=== PATIENT | female | born 1945 | race Caucasian/White ===

== ENCOUNTER 2020-05-06 12:54 | Outpatient (CLI) | payer MEDICARE ==
--- NOTE | 2020-05-06 14:04 | BD ---
EXAM: DEXA bone density examination HISTORY: 74-year-old postmenopausal female for screening COMPARISON: None FINDINGS: L1--bone mineral density 0.878 g/sq cm; T score -1.0 L2--bone mineral density 0.816 g/sq cm; T score -1.2 L3--bone mineral density 0.923 g/sq cm; T score -1.5 L4--bone mineral density 0.845 g/sq cm; T score -2.0 Total L1-L4--bone mineral density 0.884 g/sq cm; T score -1.5 Left femoral neck--bone mineral density0.620; T score -2.1 Total proximal left femur--bone mineral density 0.809; T score -1.1 IMPRESSION: Osteopenia. This patient has a 10 year WHO fracture risk of a major osteoporotic fracture of 13% and of a hip fracture of 3.5%.
--- NOTE | 2020-05-10 16:03 | MMO ---
Bilateral MAMMO Bilat Screen [facility]. CLINICAL HISTORY: Patient is 74 years old and is seen for screening. The patient has no family history of breast cancer. The patient has no personal history of cancer. The patient has a history of left Excisional Biopsy - benign - YEARS AGO. VIEWS: The views performed were: bilateral craniocaudal with tomosynthesis and bilateral mediolateral oblique with tomosynthesis. FILMS COMPARED: The present examination has been compared to prior imaging studies performed at 05/04/2019. This study has been interpreted with the assistance of computer-aided detection. MAMMOGRAM FINDINGS: The breasts are heterogeneously dense, which could obscure a lesion on mammography. Finding 1: There are benign appearing calcifications seen in both breasts. Finding 2: There are multiple round masses of varying size with circumscribed margins seen in the right breast. There are no suspicious masses, suspicious calcifications, or new areas of architectural distortion. IMPRESSION: THERE IS NO MAMMOGRAPHIC EVIDENCE OF MALIGNANCY. A ROUTINE FOLLOW-UP MAMMOGRAM IN 1 YEAR IS RECOMMENDED. THE RESULTS OF THIS EXAM WERE SENT TO THE PATIENT. ACR BI-RADS Category 2 - Benign finding MAMMOGRAPHY NOTE: 1. A negative mammogram report should not delay a biopsy if a dominant of clinically suspicious mass is present. 2. Approximately 10% to 15% of breast cancers are not detected by mammography. 3. Adenosis and dense breasts may obscure an underlying neoplasm. Reported by: LIANA BRAGA MD Electonically Signed: [id number]
== END 2020-05-06 12:55 | disposition home or self-care (01) ==
LOC: BICMAMMO 12:54
PROVIDERS: ATTEND Family Medicine
DX: Z12.31 Encounter for screening mammogram for malignant neoplasm of breast (principal); M81.0 Age-related osteoporosis without current pathological fracture; M85.89 Other specified disorders of bone density and structure, multiple sites; Z91.89 Other specified personal risk factors, not elsewhere classified
CPT/HCPCS: 77063; 77067; 77080

== ENCOUNTER 2020-10-02 08:26 | Outpatient (CLI) | payer MEDICARE | END 2020-10-02 08:27 | disposition home or self-care (01) | LOC: BICRAD 08:26 | PROVIDERS: ATTEND Family Medicine | DX: R91.8 Other nonspecific abnormal finding of lung field (principal); J98.4 Other disorders of lung | CPT/HCPCS: 71046 ==

== ENCOUNTER 2021-05-07 09:20 | Outpatient (CLI) | payer MEDICARE | END 2021-05-07 09:21 | disposition home or self-care (01) | LOC: BICMAMMO 09:20 | PROVIDERS: ATTEND Family Medicine | DX: Z12.31 Encounter for screening mammogram for malignant neoplasm of breast (principal) | CPT/HCPCS: 77063; 77067 ==

== ENCOUNTER 2022-05-12 13:38 | Outpatient (CLI) | payer MEDICARE | END 2022-05-12 13:39 | disposition home or self-care (01) | LOC: BICMAMMO 13:38 | PROVIDERS: ATTEND Family Medicine | DX: Z12.31 Encounter for screening mammogram for malignant neoplasm of breast (principal); Z91.89 Other specified personal risk factors, not elsewhere classified | CPT/HCPCS: 77063; 77067 ==

== ENCOUNTER 2022-05-24 09:41 | Emergency (ER) | payer MEDICARE ==
[2022-05-24 10:12] LABS: #Lymphocytes 0.7 thou/uL (1.20-3.40); #Monocytes 0.6 thou/uL (0.11-0.59); %Eosinophils 0.4 % (0.0-10.0); %Lymphocytes 9.8 % (21.0-51.0); %Monocytes 8.3 % (0.0-10.0); %Neutrophils 81.4 % (42.0-75.0); Hemoglobin 14.7 g/dL (12.0-16.0); Mean Corpuscular HGB CONC 34.9 g/dL (32.0-36.0); Mean Corpuscular Hemoglobin 31.2 pg (27.0-31.0); Mean Corpuscular Volume 89.5 fl (78.0-98.0); Mean Platelet Volume 8.1 fL (7.4-10.4); Platelet Count 130 10x3/uL (130-400); RBC Distribution Width 11.7 % (11.5-14.5); White Blood Cell (WBC) Count 7.4 10x3/uL (4.8-10.8)
[2022-05-24 10:35] LABS: ALT (SGPT) 18 U/L (8-55); AST (SGOT) 22 U/L (5-34); Albumin 4.3 g/dL (3.4-4.8); Alkaline Phosphatase 97 U/L (40-110); Anion Gap 15 mmol/L (10-20); BUN (Urea Nitrogen) 22 mg/dL (9.8-20.1); Bilirubin, Total 0.9 mg/dL (0.2-1.2); Calc. Creatinine Clearance 0 mL/min (70-130); Calcium 9.3 mg/dL (7.8-10.44); Carbon Dioxide 23 mmol/L (23-31); Chloride 103 mmol/L (98-107); Estimated GFR 73; Glucose 102 mg/dL (83-110); Potassium 3.5 mmol/L (3.5-5.1); Protein, Total 7.3 g/dL (5.8-8.1); Sodium 137 mmol/L (136-145)
[2022-05-24 10:59] LABS: Magnesium 1.7 mg/dL (1.6-2.6)
[2022-05-24] MEDS ORDERED: Iopamidol 370 76% 100 ML VIAL ONE (11:13)
[2022-05-24] MEDS ORDERED: Ketorolac Tromethamine 30 MG/ML VIAL ONE (12:29)
[2022-05-24 13:40] LABS: SARS-CoV-2 NAA Rapid Test Not Detected (NotDetected)
[2022-05-24 13:47] LABS: Bacteria/HPF None Seen HPF (None Seen); Bilirubin Negative (Negative); Blood, Urine Trace (Negative); Clarity Clear (Clear); Glucose, Urine (Dipstick) Normal (Negative); Ketone, Urine Negative (Negative); Leukocyte 250 Leu/uL (Negative); Nitrite Negative (Negative); Protein, Urine (Dipstick) Negative (Neg-Trace); RBC/HPF 0-3 HPF (0-3); Specific Gravity, Urine 1.022 (1.002-1.036); Squamous Epithelial 0-3 HPF (0-3); Urobilinogen Normal mg/dL (Less than 2)
[2022-05-24 14:17] LABS: Troponin I Less than 0.010 ng/mL (< 0.028)
[2022-05-24] MEDS ORDERED: Ipratropium Bromide 2.5 ml Neb ONE (14:38)
[2022-05-24] MEDS ORDERED: Albuterol Sulfate 2.5 mg/3 ml Neb ONE (14:38)
== END 2022-05-24 16:26 | disposition home or self-care (01) ==
LOC: ERS 09:41
DX: N39.0 Urinary tract infection, site not specified (principal); R06.02 Shortness of breath; E03.9 Hypothyroidism, unspecified; Z20.822 Contact with and (suspected) exposure to COVID-19
CPT/HCPCS: 0240U; 71045; 71275; 80053; 83605; 83735; 83880; 84484 ×2; 85025; 87040; 87086; 93005; 94640; 96372; 99285; 36415; 81003; 81015; J1885; J7611; Q9967

== ENCOUNTER 2022-10-06 04:25 | Emergency (ER) | payer MEDICARE ==
[2022-10-06 05:47] LABS: Bilirubin Negative (Negative); Blood, Urine 3+ (Negative); Clarity Turbid (Clear); Glucose, Urine (Dipstick) Normal (Negative); Ketone, Urine Negative (Negative); Leukocyte 500 Leu/uL (Negative); Nitrite Negative (Negative); Protein, Urine (Dipstick) 20 mg/dL (Neg-Trace); Specific Gravity, Urine 1.006 (1.002-1.036); Urobilinogen Normal mg/dL (Less than 2); pH, Urine 7.5 (5.0-9.0)
[2022-10-06 06:05] LABS: Squamous Epithelial 0-3 HPF (0-3)
[2022-10-06 06:06] LABS: Bacteria/HPF 1+ HPF (None Seen)
[2022-10-06 06:07] LABS: Transitional Epithelial 0-3 HPF (None Seen)
== END 2022-10-06 06:58 | disposition home or self-care (01) ==
LOC: ERS 04:25
DX: N30.00 Acute cystitis without hematuria (principal); E03.9 Hypothyroidism, unspecified
CPT/HCPCS: 81003; 81015; 87086; 99283

== ENCOUNTER 2022-11-18 11:10 | Inpatient (IN) | payer MEDICARE ==
[~2022-11-18 11:10] MED LIST: Iopamidol-370 76% 500 ML MDV (1 ML CHARGE) ONE
[2022-11-18 12:55] LABS: #Eosinphils 0.1 thou/uL (0.0-0.7); #Monocytes 0.9 thou/uL (0.11-0.59); #Neutrophils 4.8 thou/uL (1.40-6.50); %Basophils 0.4 % (0.0-1.0); %Lymphocytes 17.2 % (21.0-51.0); %Neutrophils 68.1 % (42.0-75.0); Hemoglobin 13.3 g/dL (12.0-16.0); Mean Corpuscular Hemoglobin 30.7 pg (27.0-31.0); Mean Corpuscular Volume 87.8 fl (78.0-98.0); Mean Platelet Volume 10.6 fL (7.4-10.4); Platelet Count 152 10x3/uL (130-400); RBC Distribution Width 12.2 % (11.5-14.5); Red Blood Cell (RBC) Count 4.33 mill/uL (4.20-5.40); White Blood Cell (WBC) Count 7.1 10x3/uL (4.8-10.8)
[2022-11-18 13:28] LABS: ALT (SGPT) 11 U/L (8-55); AST (SGOT) 15 U/L (5-34); Albumin 3.9 g/dL (3.4-4.8); Alkaline Phosphatase 71 U/L (40-110); Anion Gap 10 mmol/L (10-20); BUN (Urea Nitrogen) 14 mg/dL (9.8-20.1); Bilirubin, Total 0.7 mg/dL (0.2-1.2); Calc. Creatinine Clearance 0 mL/min (70-130); Carbon Dioxide 26 mmol/L (23-31); Chloride 101 mmol/L (98-107); Estimated GFR 78; Globulin 2.8 g/dL (2.4-3.5); Glucose 101 mg/dL (83-110); Potassium 3.4 mmol/L (3.5-5.1); Protein, Total 6.7 g/dL (5.8-8.1); Sodium 134 mmol/L (136-145)
[2022-11-18] MEDS ORDERED: Ondansetron PF 4 MG/2 ML Vial ONE (14:16)
[2022-11-18] MEDS ORDERED: Electrolyte Replacement Protocol 1 EACH FS SCH (14:58)
[2022-11-18] MEDS ORDERED: Ondansetron ODT 4 MG TAB PO PRN ×2 (15:19→20:32)
[2022-11-18] MEDS ORDERED: Acetaminophen 325 MG TAB PO PRN ×3 (15:19→20:32)
[2022-11-18 16:27] LABS: Phosphorus 2.5 mg/dL (2.3-4.7)
[2022-11-18 16:29] LABS: Magnesium 2.1 mg/dL (1.6-2.6)
[2022-11-18] MEDS ORDERED: Ondansetron PF 4 MG/2 ML Vial IVP PRN ×2 (18:53→20:33)
[2022-11-18 19:39] LABS: Bilirubin Negative (Negative); Blood, Urine Trace (Negative); Clarity Clear (Clear); Glucose, Urine (Dipstick) Normal (Negative); Ketone, Urine 10 mg/dL (Negative); Leukocyte 250 Leu/uL (Negative); Mucous/LPF Rare LPF (<2+); Nitrite Negative (Negative); Protein, Urine (Dipstick) 20 mg/dL (Neg-Trace); RBC/HPF 0-3 HPF (0-3); Renal Epithelial 0-3 HPF (None Seen); Squamous Epithelial 0-3 HPF (0-3); Urobilinogen Normal mg/dL (Less than 2); WBC/HPF 21-50 HPF (0-3)
[2022-11-18 19:40] LABS: Bacteria/HPF 1+ HPF (None Seen); Specific Gravity, Urine Greater than 1.060 (1.002-1.036)
[2022-11-18] MEDS: Famotidine/PF 20 mg/2ml Vial SLOW IVP SCH (20:42)
[2022-11-18] MEDS: metroNIDAZOLE 500 MG in Premix Bag 1 BAG IVPB SCH (20:43)
[2022-11-18] MEDS: Heparin 5,000 UNITS/ML VIAL SC SCH (20:43)
[2022-11-18] MEDS ORDERED: Potassium Chloride 20 MEQ TAB PO SCH (21:00)
[2022-11-18] MEDS ORDERED: Heparin 5,000 UNITS/ML VIAL SC SCH (21:00)
[2022-11-18] MEDS ORDERED: Famotidine/PF 20 mg/2ml Vial SLOW IVP SCH ×2 (21:00)
[2022-11-18] MEDS ORDERED: metroNIDAZOLE 500 MG in Premix Bag 1 BAG IVPB SCH (22:00)
[2022-11-18 22:14] VITALS: BMI 24.8
[2022-11-19] MEDS: Levothyroxine Sodium 100 MCG TAB PO SCH (04:42)
[2022-11-19] MEDS: metroNIDAZOLE 500 MG in Premix Bag 1 BAG IVPB SCH ×3 (04:42→20:18)
[2022-11-19] MEDS ORDERED: Levothyroxine Sodium 100 MCG TAB PO SCH (06:00)
[2022-11-19 06:31] LABS: #Eosinphils 0.1 thou/uL (0.0-0.7); #Monocytes 0.7 thou/uL (0.11-0.59); #Neutrophils 3.4 thou/uL (1.40-6.50); %Basophils 0.4 % (0.0-1.0); %Eosinophils 2.1 % (0.0-10.0); %Lymphocytes 19.3 % (21.0-51.0); %Neutrophils 63.8 % (42.0-75.0); Hemoglobin 12.4 g/dL (12.0-16.0); Mean Corpuscular HGB CONC 34.5 g/dL (32.0-36.0); Mean Corpuscular Hemoglobin 31.1 pg (27.0-31.0); Mean Platelet Volume 11.1 fL (7.4-10.4); Platelet Count 151 10x3/uL (130-400); RBC Distribution Width 12.3 % (11.5-14.5); Red Blood Cell (RBC) Count 3.99 mill/uL (4.20-5.40); White Blood Cell (WBC) Count 5.3 10x3/uL (4.8-10.8)
[2022-11-19 06:59] LABS: ALT (SGPT) 11 U/L (8-55); AST (SGOT) 14 U/L (5-34); Albumin 3.6 g/dL (3.4-4.8); Alkaline Phosphatase 61 U/L (40-110); Anion Gap 11 mmol/L (10-20); BUN (Urea Nitrogen) 12 mg/dL (9.8-20.1); Bilirubin, Total 0.5 mg/dL (0.2-1.2); Calc. Creatinine Clearance 63 mL/min (70-130); Calcium 8.8 mg/dL (7.8-10.44); Carbon Dioxide 24 mmol/L (23-31); Chloride 106 mmol/L (98-107); Estimated GFR 73; Globulin 2.4 g/dL (2.4-3.5); Glucose 105 mg/dL (83-110); Potassium 3.8 mmol/L (3.5-5.1); Sodium 137 mmol/L (136-145)
[2022-11-19] MEDS: Vancomycin HCl 125 MG/5 ML (BATCHED) UDCUP PO SCH ×3 (09:30→20:18)
[2022-11-19] MEDS: Famotidine/PF 20 mg/2ml Vial SLOW IVP SCH ×2 (09:30→20:18)
[2022-11-19] MEDS: Heparin 5,000 UNITS/ML VIAL SC SCH ×2 (09:31→20:18)
[2022-11-19] MEDS: Ketorolac Tromethamine 30 MG/ML VIAL IVP PRN ×2 (09:31→17:06)
[2022-11-19] MEDS: Saccharomyces boulardii 250 MG CAP PO SCH (11:54)
[2022-11-20] MEDS: Vancomycin HCl 125 MG/5 ML (BATCHED) UDCUP PO SCH ×2 (03:34→07:45)
[2022-11-20] MEDS: Levothyroxine Sodium 100 MCG TAB PO SCH (05:45)
[2022-11-20] MEDS: metroNIDAZOLE 500 MG in Premix Bag 1 BAG IVPB SCH ×3 (05:45→21:24)
[2022-11-20 06:23] LABS: Hemoglobin 11.7 g/dL (12.0-16.0); Mean Corpuscular HGB CONC 34.1 g/dL (32.0-36.0); Mean Corpuscular Hemoglobin 30.3 pg (27.0-31.0); Mean Corpuscular Volume 88.9 fl (78.0-98.0); Mean Platelet Volume 11.1 fL (7.4-10.4); Platelet Count 141 10x3/uL (130-400); RBC Distribution Width 12.2 % (11.5-14.5); Red Blood Cell (RBC) Count 3.86 mill/uL (4.20-5.40); White Blood Cell (WBC) Count 4.9 10x3/uL (4.8-10.8)
[2022-11-20 06:32] LABS: Anion Gap 11 mmol/L (10-20); BUN (Urea Nitrogen) 7 mg/dL (9.8-20.1); Calc. Creatinine Clearance 63 mL/min (70-130); Calcium 8.8 mg/dL (7.8-10.44); Carbon Dioxide 24 mmol/L (23-31); Chloride 104 mmol/L (98-107); Estimated GFR 74; Glucose 102 mg/dL (83-110); Potassium 3.8 mmol/L (3.5-5.1); Sodium 135 mmol/L (136-145)
[2022-11-20 06:56] LABS: Delete Auto Diff?? YES; Manual Diff?? YES
[2022-11-20 07:26] LABS: Band 36 % (5-11); CellaVision Operator ID LAB.GE; Eosinophils 2 % (0-10); Lymphocytes 15 % (21-51); Monocytes 7 % (0-10); Neutrophil 36 % (42-75); Platelet Adequacy Comment Platelets Normal; Polychromasia SLIGHT = 2-3 cells HPF (0-2); Reactive Lymphocytes 4 % (0-10); Total Cell Count 100
[2022-11-20] MEDS: Heparin 5,000 UNITS/ML VIAL SC SCH ×2 (07:44→21:23)
[2022-11-20] MEDS: Famotidine/PF 20 mg/2ml Vial SLOW IVP SCH ×2 (07:44→21:21)
[2022-11-20] MEDS: Saccharomyces boulardii 250 MG CAP PO SCH (11:26)
[2022-11-20] MEDS ORDERED: Fidaxomicin 200 MG TAB PO SCH (13:00)
[2022-11-20] MEDS: Ketorolac Tromethamine 30 MG/ML VIAL IVP PRN (21:22)
[2022-11-20] MEDS: Fidaxomicin 200 MG TAB PO SCH (21:23)
[2022-11-21] MEDS: Levothyroxine Sodium 100 MCG TAB PO SCH (05:20)
[2022-11-21] MEDS: metroNIDAZOLE 500 MG in Premix Bag 1 BAG IVPB SCH (05:21)
[2022-11-21 06:25] LABS: #Basophils 0.1 thou/uL (0.0-0.2); #Eosinphils 0.3 thou/uL (0.0-0.7); #Monocytes 0.6 thou/uL (0.11-0.59); #Neutrophils 2.5 thou/uL (1.40-6.50); %Eosinophils 6.6 % (0.0-10.0); %Lymphocytes 28.7 % (21.0-51.0); %Monocytes 11.8 % (0.0-10.0); %Neutrophils 50.9 % (42.0-75.0); Hemoglobin 12.2 g/dL (12.0-16.0); Mean Corpuscular HGB CONC 34.4 g/dL (32.0-36.0); Mean Corpuscular Hemoglobin 30.8 pg (27.0-31.0); Mean Corpuscular Volume 89.6 fl (78.0-98.0); Mean Platelet Volume 10.9 fL (7.4-10.4); Platelet Count 144 10x3/uL (130-400); RBC Distribution Width 12.1 % (11.5-14.5); Red Blood Cell (RBC) Count 3.96 mill/uL (4.20-5.40); White Blood Cell (WBC) Count 4.8 10x3/uL (4.8-10.8)
[2022-11-21 06:55] LABS: Anion Gap 13 mmol/L (10-20); BUN (Urea Nitrogen) 10 mg/dL (9.8-20.1); Calc. Creatinine Clearance 60 mL/min (70-130); Calcium 8.7 mg/dL (7.8-10.44); Carbon Dioxide 23 mmol/L (23-31); Chloride 108 mmol/L (98-107); Estimated GFR 70; Glucose 97 mg/dL (83-110); Potassium 3.8 mmol/L (3.5-5.1); Sodium 140 mmol/L (136-145)
[2022-11-21] MEDS: Famotidine/PF 20 mg/2ml Vial SLOW IVP SCH (09:15)
[2022-11-21] MEDS: Fidaxomicin 200 MG TAB PO SCH (09:15)
[2022-11-21] MEDS: Heparin 5,000 UNITS/ML VIAL SC SCH (09:15)
[2022-11-21] MEDS: Saccharomyces boulardii 250 MG CAP PO SCH (12:20)
[2022-11-21 13:29] VITALS: BP 154/82; TEMP 97.7
== END 2022-11-21 13:28 | disposition home or self-care (01) | DRG 372 ==
LOC: ERS 11:10 → T4-A 18:58 → INTOOBSV 18:58 → OBSVTOIN 11-19 12:48
PROVIDERS: ADMIT Internal Medicine; ATTEND Internal Medicine
DX: A04.71 Enterocolitis due to Clostridium difficile, recurrent (principal); E87.1 Hypo-osmolality and hyponatremia; E03.9 Hypothyroidism, unspecified; K57.30 Diverticulosis of large intestine without perforation or abscess without bleeding; E87.6 Hypokalemia; K21.9 Gastro-esophageal reflux disease without esophagitis; Z98.890 Other specified postprocedural states; Z88.0 Allergy status to penicillin; Z88.8 Allergy status to other drugs, medicaments and biological substances; Z79.899 Other long term (current) drug therapy; Z79.890 Hormone replacement therapy; Z90.710 Acquired absence of both cervix and uterus; Z90.49 Acquired absence of other specified parts of digestive tract
CPT/HCPCS: 36415; 74177; 80048; 80053; 81001; 83605; 83690; 83735; 84100; 85025; 87324; 87328; 87329; 87449; 96361; 96365; 96372; 96375; 96376; G0378; J1644; J1885; J1956; J2405; Q9967; S0028

== ENCOUNTER 2022-12-29 11:55 | Day surgery (SDC) | payer MEDICARE ==
[2022-12-28 09:04] VITALS: BMI 26.2
[2022-12-29] MEDS ORDERED: Midazolam HCl 2 mg/2 ml Vial ONE (14:27)
[2022-12-29] MEDS ORDERED: PROPOFOL 200 MG/20 ML VIAL ONE (14:39)
== END 2022-12-29 16:00 | disposition home or self-care (01) ==
LOC: SDC 11:55
PROVIDERS: ATTEND Internal Medicine Gastroenterology
PROC: 0DJD8ZZ Inspection of Lower Intestinal Tract, Via Natural or Artificial Opening Endoscopic (ICD-10-PCS; principal; 2022-12-29)
DX: K21.9 Gastro-esophageal reflux disease without esophagitis (principal); E03.9 Hypothyroidism, unspecified; Z90.49 Acquired absence of other specified parts of digestive tract; Z90.710 Acquired absence of both cervix and uterus; Z88.0 Allergy status to penicillin; Z88.8 Allergy status to other drugs, medicaments and biological substances; Z79.899 Other long term (current) drug therapy
CPT/HCPCS: J2250; J2704

== ENCOUNTER 2023-03-19 08:21 | Outpatient (CLI) | payer MEDICARE | END 2023-03-19 08:22 | disposition home or self-care (01) | LOC: BICRAD 08:21 | PROVIDERS: ATTEND Family Medicine | DX: R05.3 Chronic cough (principal) | CPT/HCPCS: 71046 ==

== ENCOUNTER 2023-06-04 08:00 | Outpatient (CLI) | payer MEDICARE | END 2023-06-04 08:01 | disposition home or self-care (01) | LOC: BICCT 08:00 | PROVIDERS: ATTEND Specialist | DX: R09.81 Nasal congestion (principal); J32.0 Chronic maxillary sinusitis; J34.2 Deviated nasal septum ==

== ENCOUNTER 2023-06-21 15:45 | Outpatient (CLI) | payer MEDICARE | END 2023-06-21 15:46 | disposition home or self-care (01) | LOC: BICRAD 15:45 | PROVIDERS: ATTEND Family Medicine | DX: M54.6 Pain in thoracic spine (principal); R07.81 Pleurodynia | CPT/HCPCS: 72072 ==

== ENCOUNTER 2023-11-08 09:47 | Day surgery (SDC) | payer MEDICARE ==
[2023-11-08] MEDS: Zoledronic Acid/Mannitol&Water 5 MG in Premix 1 BAG IVPB SCH (10:11)
[2023-11-08 10:27] VITALS: BP 170/79; TEMP 97.6
== END 2023-11-08 11:02 | disposition home or self-care (01) ==
LOC: ONC/OP 09:47
PROVIDERS: ATTEND Family Medicine
DX: M81.0 Age-related osteoporosis without current pathological fracture (principal); Z88.0 Allergy status to penicillin
CPT/HCPCS: 96374; J3489

== ENCOUNTER 2024-05-12 07:25 | Outpatient (CLI) | payer MEDICARE ==
[2024-05-12] MEDS ORDERED: E-Z-HD 98% W/W 340GM BOT (x-ray ONLY) ONE (07:42)
[2024-05-12] MEDS ORDERED: Barium Sulfate 96% 176 GM BOT (xray ONLY) ONE (07:42)
== END 2024-05-12 07:26 | disposition home or self-care (01) ==
LOC: RAD 07:25
PROVIDERS: ATTEND Physician Assistant Medical
DX: K21.9 Gastro-esophageal reflux disease without esophagitis (principal); K44.9 Diaphragmatic hernia without obstruction or gangrene; K22.89 Other specified disease of esophagus; Z86.19 Personal history of other infectious and parasitic diseases
CPT/HCPCS: 74220

== ENCOUNTER 2025-05-15 10:02 | Outpatient (CLI) | payer MEDICARE | END 2025-05-15 10:03 | disposition home or self-care (01) | LOC: RAD 10:02 | PROVIDERS: ATTEND Family Medicine | DX: J22 Unspecified acute lower respiratory infection (principal); R06.00 Dyspnea, unspecified | CPT/HCPCS: 71046 ==